=== PATIENT | female | born 1990 | race Caucasian/White ===

== ENCOUNTER 2016-12-04 13:48 | Emergency (ER) | payer SELFPAY ==
[~2016-12-04] VITALS: Wt 69.0 kg
[~2016-12-04 13:48] MED LIST: CIPR500T4 PO; FERR-31 PO; ONDA4TAB35 PO; PHEN-538 PO; PREN1TAB13
== END 2016-12-04 16:12 | disposition left against medical advice (07) ==
LOC: FTE 13:48
DX: Z53.21 Procedure and treatment not carried out due to patient leaving prior to being seen by health care provider (principal)

== ENCOUNTER 2017-04-16 23:16 | Emergency (ER) | payer MEDICAID ==
[~2017-04-16] VITALS: Ht 157.5 cm; Wt 61.0 kg
[2017-04-16 23:24] VITALS: Ht 157.5 cm; Wt 61.0 kg
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
[2017-04-17] MEDS ORDERED: IOHEXOL 300MG/ML 150 ML BTL ONE (03:55)
[2017-04-17] MEDS ORDERED: SOD CHLORIDE 0.9% 100 ML ONE (03:55)
[2017-04-17] MEDS ORDERED: morphine 4 MG/ML VIAL IV STA (03:55)
[2017-04-17] MEDS ORDERED: ONDANSETRON 4 MG INJ IV STA (03:55)
[2017-04-17 03:59] LABS: ADD SCAN DIFF NO
[2017-04-17 04:00] LABS: BASOPHILS % 0.4 % (0.0-2.0); EOSINOPHILS # 0.1 10^3/ul (0.0-0.5); EOSINOPHILS % 0.9 % (0.0-7.0); HEMATOCRIT 35.6 % (37.0-47.0); HEMOGLOBIN 10.9 g/dl (12.0-16.0); LYMPHOCYTES # 3.2 10^3/ul (0.8-2.9); LYMPHOCYTES % 37.3 % (15.0-51.0); MEAN CORPUSCULAR HEMOGLOBIN 22.7 pg (29.0-33.0); MEAN CORPUSCULAR HGB CONC 30.6 g/dl (32.0-37.0); MEAN PLATELET VOLUME 10.5 fl (7.4-10.4); MONOCYTE # 0.5 10^3/ul (0.3-0.9); MONOCYTES % 6.3 % (0.0-11.0); NEUTROPHIL # 4.7 10^3/ul (1.6-7.5); NEUTROPHILS % 54.9 % (39.0-77.0); PLATELET COUNT 276 10^3/UL (140-415); RED BLOOD COUNT 4.81 10^6/ul (4.20-5.40); RED CELL DISTRIBUTION WIDTH 17.5 % (11.5-14.5); WHITE BLOOD COUNT 8.5 10^3/ul (4.8-10.8)
[2017-04-17 04:18] LABS: ALBUMIN 4.6 g/dl (3.3-4.9); ALBUMIN/GLOBULIN RATIO 1.15; BILIRUBIN,INDIRECT 0.1 mg/dl (0-1.1); BILIRUBIN,TOTAL 0.1 mg/dl (0.2-1.3); CALCIUM 9.5 mg/dl (8.4-10.2); CREATININE 0.58 mg/dl (0.44-1.00); POTASSIUM 3.9 mmol/L (3.5-5.1); TOTAL PROTEIN 8.6 g/dl (6.1-8.1)
[2017-04-17] MEDS ORDERED: HYDR-906 PO (04:57)
[2017-04-17] MEDS ORDERED: IBUP-1542 PO (04:57)
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
[2017-04-17 05:08] LABS: ADD UMIC YES; UR AMORPHOUS CRYSTAL FEW /HPF (NONE SEEN); UR ASCORBIC ACID NEGATIVE (NEGATIVE); UR BACTERIA FEW /HPF (NONE SEEN); UR BILIRUBIN (Dip) NEGATIVE (NEGATIVE); UR BLOOD (Dip) 2+ mg/dL (NEGATIVE); UR CLARITY SLIGHTLY CLOUDY (CLEAR); UR COLOR YELLOW (YELLOW); UR GLUCOSE (Dip) NEGATIVE (NEGATIVE); UR KETONES (Dip) NEGATIVE (NEGATIVE); UR LEUKOCYTE ESTERASE (Dip) 2+ Leu/ul (NEGATIVE); UR MUCUS FEW /HPF (NONE SEEN); UR NITRITE (Dip) NEGATIVE (NEGATIVE); UR RBC 6 /HPF (0-5); UR SPECIFIC GRAVITY (Dip) 1.013 (1.003-1.030); UR TOTAL PROTEIN (Dip) NEGATIVE (NEGATIVE); UR UROBILINOGEN (Dip) NEGATIVE (NEGATIVE)
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
[2017-04-17] MEDS ORDERED: CYCL-319 PO (05:22)
[2017-04-17] MEDS ORDERED: CEPH-443 PO (05:23)
[2017-04-17] MEDS ORDERED: AZITHROMYCIN 250 MG TAB PO ONE (05:30)
[2017-04-17] MEDS ORDERED: CEFTRIAXONE 1 GM/50 ML (PMX) 50 ML IVPB ONE (05:30)
[2017-04-17 05:53] VITALS: BP 116/71; PULSE 71; RESP 18; TEMP 98.4
== END 2017-04-17 05:55 | disposition home or self-care (01) ==
LOC: FTE 23:16
DX: S39.92XA Unspecified injury of lower back, initial encounter (principal); S16.1XXA Strain of muscle, fascia and tendon at neck level, initial encounter; N93.8 Other specified abnormal uterine and vaginal bleeding; V28.1XXA Motorcycle passenger injured in noncollision transport accident in nontraffic accident, initial encounter
CPT/HCPCS: 36415; 72125; 72128; 74177; 80053; 81001; 83690; 85025; 96374; 96375; J0696; J2270; J2405; Q9967; Z7502; Z7610

== ENCOUNTER 2017-08-12 12:26 | Emergency (ER) | payer MEDICAID ==
[~2017-08-12] VITALS: Ht 124.5 cm; Wt 62.3 kg
[~2017-08-12 12:26] MED LIST changes: +CEPH-443 PO; +CYCL-319 PO; +HYDR-906 PO; +IBUP-1542 PO
[2017-08-12 12:45] VITALS: Ht 124.5 cm; Wt 62.3 kg
[2017-08-12] MEDS ORDERED: LIDOCAINE 1% (MDV) 20 ML INJ SC ONE (14:00)
[2017-08-12] MEDS ORDERED: HYDROCODONE/APAP (5/325) TAB PO ONE (15:30)
[2017-08-12] MEDS ORDERED: CEPH-443 PO (16:11)
[2017-08-12] MEDS ORDERED: IBUP-1542 PO (16:11)
[2017-08-12] MEDS ORDERED: SULF1TAB31 PO (16:11)
[2017-08-12 16:32] VITALS: BP 113/55; PULSE 102; RESP 17; TEMP 98.5
--- NOTE | 2017-08-12 20:10 | ERD ---
ER Documentation Chief Complaint Chief Complaint right buttocks large bump with drainage x 3 days, no previous hx HPI 26-year-old female patient with no significant past medical history presents to the ED complaining of an abscess on her right buttocks. Reports that he started to have purulent discharge coming from the abscess site on the right buttocks 3 days ago. States that this is the first time it is happening. Denies any melena, hematemesis, abdominal pain, nausea, vomiting, diarrhea. Denies any fever, anal pain, dysuria, urgency, frequency. Denies any fever, chills. ROS All systems reviewed and are negative except as per history of present illness. Medications Home Meds Active Scripts Ibuprofen* (Motrin*) 600 Mg Tab, 600 MG PO Q6, #30 TAB Prov:ANDREAS TATE PA-C 08/12/17 Cephalexin* (Keflex*) 500 Mg Capsule, 500 MG PO QID for 7 Days, CAP Prov:ANDREAS TATE PA-C 08/12/17 Sulfamethoxazole/Trimethoprim* (Bactrim Ds* Tablet) 1 Each Tablet, 1 TAB PO BID for 7 Days, #14 TAB Prov:ANDREAS TATE PA-C 08/12/17 Cephalexin* (Keflex*) 500 Mg Capsule, 500 MG PO QID for 10 Days, CAP Prov:FAUZIA LAMA NP 04/17/17 Cyclobenzaprine Hcl* (Cyclobenzaprine Hcl*) 10 Mg Tablet, 10 MG PO TID, #15 TAB Prov:FAUZIA LAMA NP 04/17/17 Ibuprofen* (Motrin*) 600 Mg Tab, 600 MG PO Q6H Y for PAIN AND OR ELEVATED TEMP, #30 TAB Prov:FAUZIA LAMA NP 04/17/17 Hydrocodone/Acetaminophen ([place] 5-325 Tablet) 1 Each Tablet, 1 TAB PO Q6H Y for SEVERE PAIN LEVEL 7-10, #20 TAB Prov:FAUZIA LAMA NP 04/17/17 Phenazopyridine Hcl* (Pyridium*) 200 Mg Tab, 200 MG PO TID, #6 TAB Prov:FAUZIA LAMA NP 06/28/15 Ciprofloxacin Hcl* (Ciprofloxacin Hcl*) 500 Mg Tablet, 500 MG PO BID for 10 Days , TAB Prov:FAUZIA LAMA MORTICIAN HELPER 06/28/15 Ondansetron Hcl* (Zofran* ODT) 4 mg -ODT Tab.disper, 4 MG PO Q8 Y for NAUSEA AND OR VOMITING, #30 TAB Prov:FAUZIA LAMA MORTICIAN HELPER 06/28/15 Reported Medications Ferrous Sulfate (Iron Supplement) 1 Tab Tablet, 1 TAB PO 09/03/14 Vit-Iron Fumarate-FA ( Vitamins Tablet) 1 Tab Tablet 06/13/10 Allergies Allergies: Coded Allergies: No Known Drug Allergies (Verified Allergy, Mild, 04/17/17) PMhx/Soc History of Surgery: Yes (C-SECTIONS X3) Anesthesia Reaction: No Hx Neurological Disorder: No Hx Respiratory Disorders: No Hx Cardiac Disorders: No Hx Psychiatric Problems: No Hx Miscellaneous Medical Probl: No Hx Alcohol Use: No Hx Substance Use: No Hx Tobacco Use: No Physical Exam Vitals Vital Signs Date Time Temp Pulse Resp B/P Pulse Ox O2 Delivery O2 Flow Rate FiO2 08/12/17 16:32 98.5 102 17 113/55 98 Room Air 08/12/17 12:45 98.6 104 18 130/67 100 Physical Exam Const: Fxl-fch-rdsyxival, well-nourished. In no acute distress. Head: Atraumatic, normocephalic Eyes: Normal Conjunctiva without injection. No purulent discharge. ENT: Normal external ear, nose. Moist oropharynx without tonsillar exudates. Non -erythematous pharynx. Uvula midline. No drooling. No trismus. Neck: No cervical midline tenderness. Full range of motion. No meningismus. No cervical lymphadenopathy. No JVD. Resp: Clear to auscultation bilaterally. No wheezing, rhonchi, rales, or crackles. No accessory muscle use. No retractions. Cardio: Regular rate and rhythm. No murmurs, rubs or gallops. Abd: Soft, nontender, non distended. Normal bowel sounds. No palpable masses. No rebound tenderness. No guarding. Negative McBurney's point. Negative psoas sign. Negative obturator sign. 4 cm area of erythema on the right buttocks with fluctuance and induration. No lymphatic streaking. No erythema surrounding the anus or fluctuance or induration. No tenderness to palpation of the anus. : See exam in MDM. Skin: No petechiae or rashes Back: No midline tenderness. No CVA tenderness. Ext: No cyanosis, or edema. Neur: Awake and alert. Normal gait. Normal coordination. Psych: Normal Mood and Affect Results 24 hrs Current Medications Medications (Trade) Dose Ordered Sig/Anna Marie Route PRN Reason Start Time Stop Time Status Last Admin Dose Admin Lidocaine (Xylocaine 1% (Mdv) 20 ml) 20 ml ONCE ONCE SC 08/12/17 14:00 08/12/17 14:01 DC Acetaminophen/ Hydrocodone Bitart ([place] (5/325)) 1 tab ONCE ONCE PO 08/12/17 15:30 08/12/17 15:31 DC 08/12/17 15:25 Procedures/MDM 26-year-old female patient with no significant past medical history presents to the ED complaining of an abscess on her. Patient is afebrile and nontoxic- appearing. Patient gave consent to perform incision and drainage. 11 blade scalpel used to make a small incision. Abscess Incision and Drainage with irrigation by me: Location: Right buttocks Anesthesia: [4 cc Local 1% Lidocaine] Technique: [Irrigated. Disrupted loculations w/ instrumentation ] Packing: [None] Complications: [Neurovascularly intact post procedure] Copious purulent discharge drained from the abscess. Low suspicion for anaphylaxis, scabies, SJS/TEN, TSS, Lyme's Disease, syphilis, RMSF, shingles, disseminated gonorrhea chlamydia, DIC, TTP, ITP, erythema multiforme, sepsis, cellulitis, necrotizing fascitis, gangrene, meningococcemia, allergic contact dermatitis, urticaria, eczema, tinea infection, or other emergent conditions. Low suspicion for perirectal abscess, perianal abscess, hemorrhoids, fistula, deep space infection. Keflex and Bactrim was prescribed to patient. Instructed patient to return to the ED sooner for any worsening symptoms. Follow up with primary care physician or return to the ED in 2 days for a wound check. Patient's questions were answered. Patient understood and agreed with discharge plan. Departure Diagnosis: Primary Impression: Abscess Condition: Stable Patient Instructions: Abscess, Incision And Drainage Referrals: COMMUNITY CLINICS YOU HAVE RECEIVED A MEDICAL SCREENING EXAM AND THE RESULTS INDICATE THAT YOU DO NOT HAVE A CONDITION THAT REQUIRES URGENT TREATMENT IN THE EMERGENCY DEPARTMENT. FURTHER EVALUATION AND TREATMENT OF YOUR CONDITION CAN WAIT UNTIL YOU ARE SEEN IN YOUR DOCTORS OFFICE WITHIN THE NEXT 1-2 DAYS. IT IS YOUR RESPONSIBILITY TO MAKE AN APPOINTMENT FOR FOLOW-UP CARE. IF YOU HAVE A PRIMARY DOCTOR --you should call your primary doctor and schedule an appointment IF YOU DO NOT HAVE A PRIMARY DOCTOR YOU CAN CALL OUR PHYSICIAN REFERRAL HOTLINE AT IF YOU CAN NOT AFFORD TO SEE A PHYSICIAN YOU CAN CHOSE FROM THE FOLLOWING [facility] CLINICS [facility] [address] [facility] [address] [facility] [address] [facility] [facility] [address] [facility] [facility] [address] [facility]. [facility] [address] [facility]. [facility] YOU HAVE RECEIVED A MEDICAL SCREENING EXAM AND THE RESULTS INDICATE THAT YOU DO NOT HAVE A CONDITION THAT REQUIRES URGENT TREATMENT IN THE EMERGENCY DEPARTMENT. FURTHER EVALUATION AND TREATMENT OF YOUR CONDITION CAN WAIT UNTIL YOU ARE SEEN IN YOUR DOCTORS OFFICE WITHIN THE NEXT 1-2 DAYS. IT IS YOUR RESPONSIBILITY TO MAKE AN APPOINTMENT FOR FOLOW-UP CARE. IF YOU HAVE A PRIMARY DOCTOR --you should call your primary doctor and schedule and appointment IF YOU DO NOT HAVE A PRIMARY DOCTOR YOU CAN CALL OUR PHYSICIAN REFERRAL HOTLINE AT . IF YOU CAN NOT AFFORD TO SEE A PHYSICIAN YOU CAN CHOSE FROM THE FOLLOWING [facility] INSTITUTIONS: [facility] [id number] [place] [address] [facility] [address] [place] [address] [facility] [address] [place] [address] [facility] Additional Instructions: Call your primary care doctor TOMORROW for an appointment during the next 2-3 days.See the doctor sooner or return here if your condition worsens before your appointment time. Follow up in 2 days in your clinic for wound check. ANDREAS TATE PA-C Aug 12, 2017 20:10
== END 2017-08-12 16:33 | disposition home or self-care (01) ==
LOC: FTE 12:26
DX: L02.31 Cutaneous abscess of buttock (principal)
CPT/HCPCS: 10060; Z7502; Z7610

== ENCOUNTER 2017-08-14 10:08 | Emergency (ER) | payer MEDICAID ==
[~2017-08-14] VITALS: Wt 63.1 kg
[~2017-08-14 10:08] MED LIST changes: +SULF1TAB31 PO
--- NOTE | 2017-08-14 11:55 | ERD ---
ER Documentation Chief Complaint Chief Complaint 2 day wound check HPI 26-year-old female presents for evaluation for recheck on the right buttock abscess incised and drained 2 days ago. She feels better. She is taking antibiotics and has no fevers, vomiting, additional symptoms. ROS All systems reviewed and are negative except as per history of present illness. Medications Home Meds Active Scripts Ibuprofen* (Motrin*) 600 Mg Tab, 600 MG PO Q6, #30 TAB Prov:ANDREAS TATE PA-C 08/12/17 Cephalexin* (Keflex*) 500 Mg Capsule, 500 MG PO QID for 7 Days, CAP Prov:ANDREAS TATE PA-C 08/12/17 Sulfamethoxazole/Trimethoprim* (Bactrim Ds* Tablet) 1 Each Tablet, 1 TAB PO BID for 7 Days, #14 TAB Prov:ANDREAS TATE PA-C 08/12/17 Cephalexin* (Keflex*) 500 Mg Capsule, 500 MG PO QID for 10 Days, CAP Prov:FAUZIA LAMA NP 04/17/17 Cyclobenzaprine Hcl* (Cyclobenzaprine Hcl*) 10 Mg Tablet, 10 MG PO TID, #15 TAB Prov:FAUZIA LAMA NP 04/17/17 Ibuprofen* (Motrin*) 600 Mg Tab, 600 MG PO Q6H Y for PAIN AND OR ELEVATED TEMP, #30 TAB Prov:FAUZIA LAMA NP 04/17/17 Hydrocodone/Acetaminophen ([place] 5-325 Tablet) 1 Each Tablet, 1 TAB PO Q6H Y for SEVERE PAIN LEVEL 7-10, #20 TAB Prov:FAUZIA LAMA NP 04/17/17 Phenazopyridine Hcl* (Pyridium*) 200 Mg Tab, 200 MG PO TID, #6 TAB Prov:FAUZIA LAMA NP 06/28/15 Ciprofloxacin Hcl* (Ciprofloxacin Hcl*) 500 Mg Tablet, 500 MG PO BID for 10 Days , TAB Prov:FAUZIA LAMA NP 06/28/15 Ondansetron Hcl* (Zofran* ODT) 4 mg -ODT Tab.disper, 4 MG PO Q8 Y for NAUSEA AND OR VOMITING, #30 TAB Prov:FAUZIA LAMA ATLASSIAN ADMINISTRATOR 06/28/15 Reported Medications Ferrous Sulfate (Iron Supplement) 1 Tab Tablet, 1 TAB PO 09/03/14 Vit-Iron Fumarate-FA ( Vitamins Tablet) 1 Tab Tablet 06/13/10 Allergies Allergies: Coded Allergies: No Known Drug Allergies (Verified Allergy, Mild, 04/17/17) PMhx/Soc Medical and Surgical Hx: pt denies Medical Hx History of Surgery: Yes (C-SECTIONS X3) Anesthesia Reaction: No Hx Neurological Disorder: No Hx Respiratory Disorders: No Hx Cardiac Disorders: No Hx Psychiatric Problems: No Hx Miscellaneous Medical Probl: No Hx Alcohol Use: No Hx Substance Use: No Hx Tobacco Use: No Smoking Status: Never smoker Physical Exam Vitals Vital Signs Date Time Temp Pulse Resp B/P Pulse Ox O2 Delivery O2 Flow Rate FiO2 08/14/17 10:12 97.7 88 18 131/72 100 Physical Exam Const: [], Pbs-ylh-yampgroxe. Head: Atraumatic Eyes: Normal Conjunctiva ENT: Normal External Ears, Nose and Mouth. Neck: Full range of motion..~ No meningismus. Resp: Clear to auscultation bilaterally Cardio: Regular rate and rhythm, no murmurs Abd: Soft, non tender, non distended. Normal bowel sounds Skin: No petechiae or rashes right buttock shows some redness of the draining abscess that was not packed. There is no residual fluctuance or significant induration or streaking. Back: No midline or flank tenderness Ext: No cyanosis, or edema Neur: Awake and alert Psych: Normal Mood and Affect Procedures/MDM Resents with a healing abscess in the right buttock without signs of necrotizing fasciitis, recurrent abscess, sepsis. She will be discharged home with instructions to continue antibiotics instruction to return for worsening redness, fevers, new worsening symptoms otherwise wound appears to be healing satisfactorily. Departure Diagnosis: Primary Impression: Encounter for wound re-check Condition: Stable Patient Instructions: Abscess, Incision And Drainage Additional Instructions: FAYE MONROY FIEBRE TEEHEE, KEVIN N. MD Aug 14, 2017 11:55
== END 2017-08-14 15:44 | disposition home or self-care (01) ==
LOC: FTE 10:08
DX: Z48.01 Encounter for change or removal of surgical wound dressing (principal)
CPT/HCPCS: 99281

== ENCOUNTER 2019-01-18 14:22 | Emergency (ER) | payer MEDICAID ==
[~2019-01-18] VITALS: Ht 162.6 cm; Wt 85.0 kg
[~2019-01-18 14:22] MED LIST changes: -CYCL-319 PO; +CYCL10TA7 PO; +HYDR-4011 PO; -HYDR-906 PO
[2019-01-18 14:33] VITALS: Ht 162.6 cm; Wt 85.0 kg
[2019-01-18] MEDS ORDERED: KETOROLAC 60 MG INJ IM STA (15:37)
[2019-01-18] MEDS ORDERED: ONDANSETRON (ODT) 4 MG TAB ODT STA (17:01)
[2019-01-18] MEDS ORDERED: FAMO-96 PO (18:35)
[2019-01-18] MEDS ORDERED: ONDA4TAB14 PO (18:35)
[2019-01-18 18:48] VITALS: BP 121/62; PULSE 87; RESP 17
[2019-01-18] MEDS ORDERED: LIDOCAINE/MYLANTA 40 ML BTL PO ONE (19:00)
[2019-01-18] MEDS ORDERED: FAMOTIDINE 20 MG TAB PO ONE (19:00)
[2019-01-18] MEDS ORDERED: BELLADONNA/PHENOBARBITAL TAB PO ONE (19:00)
--- NOTE | 2019-01-18 20:37 | ERD ---
ER Documentation Chief Complaint Chief Complaint mid abd pain readiating to pelvic pain x 1 now- nauseated only HPI History of Present Illness: 28-year-old female with no past medical history coming in today with complaint of mid abdominal pain radiating to epigastric and nausea. Patient reports that this is been present for 1 day now. Patient denies dysuria or any genitourinary symptoms. Last menstrual period was approximately December 13. Patient denies concern for . At home pharmacological/nonpharmacological treatment for symptoms: Denies social concerns; Denies recent foreign travel ROS All systems reviewed and are negative except as per history of present illness. Medications Home Meds Active Scripts Ondansetron (Ondansetron Odt) 4 Mg Tab.rapdis, 4 MG PO Q8 PRN for NAUSEA AND/OR VOMITING, #10 TAB Prov:JAKOB DELGADO NP 01/18/19 Famotidine* (Pepcid*) 20 Mg Tablet, 20 MG PO BID PRN for UPSET STOMACH/NAUSEA AFTER EAT, #30 TAB Prov:JAKOB DELGADO NP 01/18/19 Ibuprofen* (Motrin*) 600 Mg Tab, 600 MG PO Q6, #30 TAB Prov:ANDREAS TATE PA-C 08/12/17 Cephalexin* (Keflex*) 500 Mg Capsule, 500 MG PO QID for 7 Days, CAP Prov:ANDREAS TATE PA-C 08/12/17 Sulfamethoxazole/Trimethoprim* (Bactrim Ds* Tablet) 1 Each Tablet, 1 TAB PO BID for 7 Days, #14 TAB Prov:ANDREAS TATE PA-C 08/12/17 Cephalexin* (Keflex*) 500 Mg Capsule, 500 MG PO QID for 10 Days, CAP Prov:FAUZIA LAMA NP 04/17/17 Cyclobenzaprine Hcl* (Cyclobenzaprine Hcl*) 10 Mg Tablet, 10 MG PO TID, #15 TAB Prov:FAUZIA LAMA NP 04/17/17 Ibuprofen* (Motrin*) 600 Mg Tab, 600 MG PO Q6H PRN for PAIN AND OR ELEVATED TEMP, #30 TAB Prov:FAUZIA LAMA NP 04/17/17 Hydrocodone/Acetaminophen ([place] 5-325 Tablet) 1 Each Tablet, 1 TAB PO Q6H PRN f or SEVERE PAIN LEVEL 7-10, #20 TAB Prov:FAUZIA LAMA NP 04/17/17 Phenazopyridine Hcl* (Pyridium*) 200 Mg Tab, 200 MG PO TID, #6 TAB Prov:FAUZIA LAMA NP 06/28/15 Ciprofloxacin Hcl* (Ciprofloxacin Hcl*) 500 Mg Tablet, 500 MG PO BID for 10 Days, TAB Prov:FAUZIA LAMA NP 06/28/15 Ondansetron Hcl* (Zofran* ODT) 4 mg -ODT Tab.disper, 4 MG PO Q8 PRN for NAUSEA AND OR VOMITING, #30 TAB Prov:FAUZIA LAMA DOT COMPLIANCE MANAGER 06/28/15 Reported Medications Ferrous Sulfate (Iron Supplement) 1 Tab Tablet, 1 TAB PO 09/03/14 Vit-Iron Fumarate-FA ( Vitamins Tablet) 1 Tab Tablet 06/13/10 Allergies Allergies: Coded Allergies: No Known Drug Allergies (Verified Allergy, Mild, 04/17/17) PMhx/Soc History of Surgery: Yes (C-SECTIONS X3) Anesthesia Reaction: No Hx Neurological Disorder: No Hx Respiratory Disorders: No Hx Cardiac Disorders: No Hx Psychiatric Problems: No Hx Miscellaneous Medical Probl: No Hx Alcohol Use: No Hx Substance Use: No Hx Tobacco Use: No Smoking Status: Never smoker FmHx Family History: No diabetes, No coronary disease Physical Exam Vitals Vital Signs Date Temp Pulse Resp B/P (MAP) Pulse Ox O2 O2 Flow FiO2 Time Delivery Rate 01/18/19 98.3 87 17 121/62 100 Room Air 18:48 (81) 01/18/19 98.1 125 20 118/77 99 14:33 (91) Physical Exam Const: No acute distress Head: Atraumatic Eyes: Normal Conjunctiva ENT: Normal External Ears, Nose and Mouth. Neck: Full range of motion. No meningismus. Resp: Clear to auscultation bilaterally Cardio: Regular rate and rhythm, no murmurs Abd: Soft, tenderness to palpation to epigastric, non distended. Normal bowel sounds Skin: No petechiae or rashes Back: No midline or flank tenderness Ext: No cyanosis, or edema Neur: Awake and alert Psych: Normal Mood and Affect Results 24 hrs Laboratory Tests Test 4/20/19 16:05 01/18/19 16:08 Urine Color STRAW Urine Clarity CLEAR Urine pH 9.0 Urine Specific [place] 1.009 Urine Ketones 1+ mg/dL Urine Nitrite NEGATIVE mg/dL Urine Bilirubin NEGATIVE mg/dL Urine Urobilinogen NEGATIVE mg/dL Urine Leukocyte Esterase NEGATIVE Gricel/ul Urine Microscopic RBC 2 /HPF Urine Microscopic WBC 1 /HPF Urine Bacteria FEW /HPF Urine Hemoglobin 1+ mg/dL Urine Glucose NEGATIVE mg/dL Urine Total Protein NEGATIVE mg/dl POC Beta HCG, Qualitative NEGATIVE Current Medications Medications Dose Sig/Anna Marie Start Time Status Last (Trade) Ordered Route PRN Stop Time Admin Dose Reason Admin Ketorolac 60 mg ONCE STAT 01/18/19 DC 01/18/19 Tromethamine IM 15:37 16:15 (Toradol) 01/18/19 15:39 Ondansetron 4 mg ONCE STAT 01/18/19 DC 01/18/19 HCl (Zofran ODT 17:01 17:06 Odt) 01/18/19 17:03 40 ml ONCE ONCE 01/18/19 DC 01/18/19 Miscellaneous PO 19:00 18:43 Medication 01/18/19 19:00 (Gi Cocktail (2)) Belladonna/ 1 tab ONCE ONCE 01/18/19 DC 01/18/19 Phenobarbital PO 19:00 18:43 () 01/18/19 19:00 Famotidine 40 mg ONCE ONCE 01/18/19 DC 01/18/19 (Pepcid) PO 19:00 18:43 01/18/19 19:00 Procedures/MDM ED course includes a thorough examination and history. Medications: Ketorolac, Zofran Imaging: Abdomen KUB Labs: Urinalysis, urine Low suspicion for life-threatening medical emergency. Low suspicion for coronary pulmonary emergency. Patient without any signs of chest pain, shortness of breath, palpitations. vital signs stable. Low suspicion for infectious process, patient afebrile. Otherwise healthy patient presenting with constellation of symptoms likely representing uncomplicated acute epigastric pain/nausea As characterized by history, physical exam findings, lab findings, radiologic findings. Urine negative. Urinalysis negative for infection. No respiratory distress, otherwise relatively well appearing and nontoxic. Patient reassessment reveals decrease in pain after medication menstruation. Nausea. No acute distress noted. Nausea and epigastric pain likely related to acid reflux-like etiology. Patient educated on diagnoses, prescriptions, follow-up care, return precautions. Strict return precautions given for worsening condition; questions answered discharge. Disposition for discharge with followup in 2 days with PCP/clinic. Departure Diagnosis: Primary Impression: Epigastric pain Additional Impressions: Nausea Acid reflux Esophagitis presence: esophagitis presence not specified Qualified Codes: K21.9 - Gastro-esophageal reflux disease without esophagitis Condition: Stable Patient Instructions: Gerd (Adult), Epigastric Pain (Uncertain Cause) Additional Instructions: Thank you very much for allowing us to participate in your care. Your health and safety is our top priority at [facility]. It is important to read all discharge instructions and education provided in your discharge packet. *Your abdominal x-ray did not show any abnormal findings. Your urinalysis test did not show any infection.* Call your primary care doctor TOMORROW for an appointment during the next 2-4 days and bring all the information and medications prescribed. Have prescriptions filled and follow precisely the directions on the label. --Famotidine is a medication that will help with acid reflux; take this medication as prescribed for the next 1 to 2 weeks with lunch and dinner. Report to your primary care doctor if the nausea is no longer present with this medication. If so, it is highly likely that your acid reflux is causing your nausea. -Zofran is a medication for nausea/vomitting; take this medication as needed for nausea/vomiting/decreased appetite. If the symptoms get worse and your provider is unavailable, return to the Emergency Department immediately. JAKOB DELGADO NP Jan 18, 2019 20:37
== END 2019-01-18 18:48 | disposition home or self-care (01) ==
LOC: FTE 14:22
DX: K21.9 Gastro-esophageal reflux disease without esophagitis (principal)
CPT/HCPCS: 36415; 74019; 81001; 81025; 96372; J1885; Z7502; Z7610